=== PATIENT | female | born 1980 | race American Indian/Alaskan Native ===

== ENCOUNTER 2020-05-11 13:59 | Outpatient (CLI) | payer OTHER ==
--- NOTE | 2020-05-11 15:08 | XRay Report ---
CERVICAL SPINE 4 VIEWS INDICATION / CLINICAL INFORMATION: BACK PAIN. COMPARISON: None available. FINDINGS: No significant skeletal abnormality. Alignment is normal. Signer Name: Paul Kiran MD FACSingh Signed: 05/11/2020 3:04 PM Workstation Name: [id number]
--- NOTE | 2020-05-11 15:09 | XRay Report ---
LUMBAR SPINE 3 VIEWS INDICATION / CLINICAL INFORMATION: BACK PAIN. COMPARISON: None available. FINDINGS: No significant skeletal abnormality. Alignment is normal. Signer Name: Paul Kiran MD FACSingh Signed: 05/11/2020 3:04 PM Workstation Name: [id number]
== END 2020-05-11 14:00 | disposition home or self-care (01) ==
LOC: XRAY 13:59
PROVIDERS: ATTEND Orthopaedic Surgery
DX: M54.5 Low back pain (principal); M54.2 Cervicalgia
CPT/HCPCS: 72040; 72100